=== PATIENT | female | born 1955 | race Caucasian/White ===

== ENCOUNTER 2017-08-07 13:53 | Emergency (ER) | payer OTHER ==
[2017-08-07 14:59] VITALS: BP 149/73
--- NOTE | 2017-08-07 15:48 | UC ---
Respiratory Complaint HPI - HPI Summary HPI Summary: c/o sinus congestion and pain, cough with production of thick scant phlegm, chills and low grade fever for the past 2 weeks. She has decreased the amount of cigarettes she smokes, but is feeling weak from this episode. She denies wheezing or chest pain other than when she coughs. States she is compliant with medications for HLD and DM - History of Current Complaint Chief Complaint: UCRespiratory Stated Complaint: CONGESTED,COUGH Time Seen by Provider: 08/07/17 15:20 Hx Obtained From: Patient ?: Yes Onset/Duration: Gradual Onset, Lasting Weeks Severity Initially: Mild Severity Currently: Moderate Pain Intensity: 6 Aggravating Factors: Recumbent Position Alleviating Factors: Nothing Associated Signs And Symptoms: Positive: Chills, Nasal Congestion, Sinus Discomfort - Risk Factors Pulmonary Embolism Risk Factors: Smoking Cardiac Risk Factors: Smoking, Diabetes, Elevated Lipids Pseudomonas Risk Factors: Negative Tuberculosis Risk Factors: Negative - Allergies/Home Medications Allergies/Adverse Reactions: Allergies Allergy/AdvReac Type Severity Reaction Status Date / Time No Known Allergies Allergy Verified 08/07/17 14:58 Home Medications: Home Medications Atorvastatin* [Lipitor*] 40 mg PO 1700 08/07/17 [History Confirmed 08/07/17] Insulin Glargine,Hum.rec.anlog [Basaglar Kwikpen] 30 unit SC BID 08/07/17 [ History Confirmed 08/07/17] Metformin HCl [Metformin HCl ER (Osmotic] 500 mg PO 08/07/17 [History] PMH/Surg Hx/FS Hx/Imm Hx Previously Healthy: Yes Endocrine History: Diabetes, Dyslipidemia - Surgical History Surgical History: Yes Surgery Procedure, Year, and Place: tubal ligation, t&a - Social History Alcohol Use: None Substance Use Type: None Smoking Status (MU): Light Every Day Tobacco Smoker Type: Cigarettes Review of Systems Constitutional: Fever, Chills Skin: Negative ENT: Sinus Pain/Tenderness Respiratory: Cough All Other Systems Reviewed And Are Negative: Yes Physical Exam Triage Information Reviewed: Yes Appearance: Ill-Appearing, Obese Vital Signs: Initial Vital Signs Temp 99.0 F 08/07/17 14:55 Pulse 108 08/07/17 14:55 Resp 18 08/07/17 14:55 BP 149/73 08/07/17 14:55 Pulse Ox 96 08/07/17 14:55 Vital Signs Reviewed: Yes Eyes: Positive: Conjunctiva Clear ENT: Positive: Pharyngeal erythema, Nasal congestion, TMs normal, Sinus tenderness, Uvula midline Neck exam: Normal Respiratory: Positive: Chest non-tender, Lungs clear, Normal breath sounds, No respiratory distress Cardiovascular: Positive: RRR, No Murmur, Pulses Normal, Brisk Capillary Refill UC Diagnostic Evaluation - Laboratory O2 Sat by Pulse Oximetry: 96 Respiratory Course/Dx - Course Course Of Treatment: Acute bronchitis and sinusitis with multiple risk factors, will start augmentin 875 bid for 10 days, oral hydration, tobacco cessation, use advair for 10 days, f/u with PCP - Differential Dx/Diagnosis Provider Diagnoses: acute bronchitis. Acute sinusitis. tobacco abuse Discharge - Sign-Out/Discharge Documenting (check all that apply): Discharge - Discharge Plan Condition: Stable Disposition: HOME Prescriptions: Amoxicillin/Clavulanate TAB* [Augmentin TAB 875*] 875 mg PO BID 10 Days #20 tab Fluticas/Salmet 230/21 HFA(NF) [Advair HFA 23O/21 (NF)] 1 puff INH BID 10 Days # 1 mdi Patient Education Materials: How to Stop Smoking (ED), Sinusitis (ED), Liquids and Hydration for Athletes (ED), Acute Bronchitis (ED) Forms: *Work Release Referrals: Odette Finney MD [Primary Care Provider] - - Billing Disposition and Condition Condition: STABLE Disposition: HOME
== END 2017-08-07 15:45 | disposition home or self-care (01) ==
LOC: UCEAST 13:53
DX: J20.9 Acute bronchitis, unspecified (principal); J01.90 Acute sinusitis, unspecified; E11.9 Type 2 diabetes mellitus without complications; Z79.4 Long term (current) use of insulin; Z79.84 Long term (current) use of oral hypoglycemic drugs; E78.5 Hyperlipidemia, unspecified; F17.210 Nicotine dependence, cigarettes, uncomplicated
CPT/HCPCS: 99202; G0463

== ENCOUNTER 2017-10-16 20:09 | Emergency (ER) | payer OTHER ==
[2017-10-16 20:19] VITALS: BP 140/60
--- NOTE | 2017-10-16 20:21 | UC ---
Skin Complaint HPI - HPI Summary HPI Summary: 62 yo female presents with rash to b/l feet. She tells me about 1.5 weeks ago she developed a small red blister-like lesion on her right 3rd and 4th toes. Since that time has spread to her 5th toe and yesterday noticed same lesions on her LEFT toes. Has been putting many different OTC creams on them with no relief. Has been wearing the same sandals this whole time. Says that when she showers or bathes that these lesions "sting". Denies fever, chills, or injury. - History of Current Complaint Chief Complaint: UCSkin Time Seen by Provider: 10/16/17 20:20 Stated Complaint: RASH ON BOTH FEET Hx Obtained From: Patient Onset/Duration: Gradual Onset Current Severity: None Pain Intensity: 0 - Allergy/Home Medications Allergies/Adverse Reactions: Allergies Allergy/AdvReac Type Severity Reaction Status Date / Time bee venom protein (honey bee) Allergy Severe Anaphylatic Verified 10/16/17 20:19 Shock Fish Containing Products Allergy Severe Anaphylatic Verified 10/16/17 20:19 Shock Review of Systems Constitutional: Negative Skin: Rash Respiratory: Negative Cardiovascular: Negative Neurovascular: Negative Neurological: Negative Psychological: Negative All Other Systems Reviewed And Are Negative: Yes PMH/Surg Hx/FS Hx/Imm Hx Endocrine History: Diabetes, Dyslipidemia Respiratory History: COPD - Surgical History Surgical History: Yes Surgery Procedure, Year, and Place: tubal ligation, t&a - Family History Known Family History: Positive: Diabetes - Social History Lives: With Family Alcohol Use: None Substance Use Type: None Smoking Status (MU): Current Every Day Smoker Type: Cigarettes Amount Used/How Often: 1/2 PPD Physical Exam - Summary Physical Exam Summary: GENERAL: NAD. WDWN. No pain distress. SKIN: B/L 3rd, 4th, and 5th toes: blister like lesions with erythematous bases resembling the herpes virus. No streaking, bleeding, or drainage. NECK: Supple. Nontender. No lymphadenopathy. CHEST: No accessory muscle use. Breathing comfortably and in no distress. CV: RRR. Without m/r/g. NEURO: Alert. CN II-XII grossly intact. PSYCH: Age appropriate behavior. Triage Information Reviewed: Yes Vital Signs: Initial Vital Signs Temp 97.6 F 10/16/17 20:12 Pulse 91 10/16/17 20:12 Resp 16 10/16/17 20:12 BP 140/60 10/16/17 20:12 Pulse Ox 96 10/16/17 20:12 Course/Dx - Course Course Of Treatment: Lesions most closely resemble a virus in the herpes family. Will treat with acyclovir cream and keep covered and have her f/u with PCP or with dermatology if the lesions continue to spread or do not improve. - Diagnoses Provider Diagnoses: Rash b/l feet Discharge - Sign-Out/Discharge Documenting (check all that apply): Discharge/Admit/Transfer - Discharge Plan Condition: Stable Disposition: HOME Prescriptions: Acyclovir [Acyclovir 5% TOPICAL] 15 gm TOPICAL BID #1 tube Patient Education Materials: Acute Rash (ED) Referrals: Gordo Nuñez MD [Primary Care Provider] - Fuad Petty MD [Medical Doctor] - If Needed Additional Instructions: If you develop a fever, shortness of breath, chest pain, new or worsening symptoms - please call your PCP or go to the ED. Your blood pressure was high at todays visit. Please see your primary provider within 4 weeks for recheck and re-evaluation. 1) Wash your sandals very well and keep the lesions on your toes covered 2) If the lesions do not go away or get worse - please call dermatology at the number below to schedule a follow up appointment - Billing Disposition and Condition Condition: STABLE Disposition: Home
== END 2017-10-16 20:40 | disposition home or self-care (01) ==
LOC: UCEAST 20:09
DX: R21 Rash and other nonspecific skin eruption (principal); Z91.030 Bee allergy status; Z91.013 Allergy to seafood; E11.9 Type 2 diabetes mellitus without complications; Z79.4 Long term (current) use of insulin; Z79.84 Long term (current) use of oral hypoglycemic drugs; E78.5 Hyperlipidemia, unspecified; J44.9 Chronic obstructive pulmonary disease, unspecified; Z83.3 Family history of diabetes mellitus; F17.210 Nicotine dependence, cigarettes, uncomplicated
CPT/HCPCS: 99212; G0463

== ENCOUNTER 2019-06-18 12:19 | Emergency (ER) | payer BC, OTHER ==
[2019-06-18] MEDS ORDERED: Acetaminophen TAB* 325 MG PO ONE (14:49)
[2019-06-18] MEDS ORDERED: NS 0.9% 1000 ML** 1,000 ML IV ONE ×2 (14:49→16:05)
[2019-06-18] MEDS ORDERED: Ondansetron INJ* 2 MG/ML VIAL IV ONE (14:49)
[2019-06-18] MEDS ORDERED: Albuterol/Ipratropium NEB.SOL* Albuterol 2.5 MG/Ipratropium 0.5 MG 3 ML INH ONE ×2 (14:49→16:56)
--- NOTE | 2019-06-18 14:50 | ED ---
Influenza-Like Illness - HPI Summary HPI Summary: Patient is a 64-year-old female who presents to emergency department for vomiting, diarrhea, cough, fever 4 days. Patient notes sick contacts at work. Denies significant past medical history. Symptoms are moderate in severity. Patient denies abdominal pain, shortness of breath, urinary symptoms. No current modifying factors. - History of Current Complaint Chief Complaint: EDUpperRespComplaint Time Seen by Provider: 06/18/19 14:35 Hx Obtained From: Patient - Allergy/Home Medications Allergies/Adverse Reactions: Allergies Allergy/AdvReac Type Severity Reaction Status Date / Time bee venom protein (honey bee) Allergy Severe Anaphylatic Verified 06/18/19 12:24 Shock Fish Containing Products Allergy Severe Anaphylatic Verified 06/18/19 12:24 Shock PMH/Surg Hx/FS Hx/Imm Hx Previously Healthy: Yes Endocrine/Hematology History: Reports: Hx Diabetes - type 2 Respiratory History: Reports: Hx Asthma - Surgical History Surgery Procedure, Year, and Place: tubal ligation, t&a Infectious Disease History: No Infectious Disease History: Denies: Traveled Outside the [place] in Last 30 Days - Family History Known Family History: Positive: Diabetes, Non-Contributory - Social History Occupation: Retired Lives: With Family Alcohol Use: None Substance Use Type: Reports: None Smoking Status (MU): Current Every Day Smoker Type: Cigarettes Amount Used/How Often: 1/2 PPD Review of Systems Positive: Fever, Chills ENT: Other - sinus pressure Positive: Nasal Discharge Cardiovascular: Negative Negative: Palpitations, Chest Pain Positive: Cough. Negative: Shortness Of Breath Positive: Vomiting, Diarrhea. Negative: Abdominal Pain Genitourinary: Negative Positive: Myalgia Skin: Negative Neurological/Mental Status: Negative All Other Systems Reviewed And Are Negative: Yes Physical Exam Triage Information Reviewed: Yes Vital Signs On Initial Exam: Initial Vitals Temp Pulse Resp BP Pulse Ox 98.3 F 124 20 163/70 91 06/18/19 12:20 06/18/19 12:20 06/18/19 12:20 06/18/19 12:20 06/18/19 12:20 Vital Signs Reviewed: Yes Appearance: Positive: Well-Appearing - Pt. lying in bed in NAD. Appears fatigued but nontoxic. present. Skin: Positive: Warm, Dry Head/Face: Positive: Normal Head/Face Inspection Eyes: Positive: Normal, EOMI, LOS, Conjunctiva Clear ENT: Positive: Pharyngeal erythema, TMs normal, Sinus tenderness, Other - oral mucosa dry.. Negative: Tonsillar swelling, Tonsillar exudate Neck: Positive: Supple Respiratory/Lung Sounds: Positive: Other - Diminished breath sounds throughout. Cardiovascular: Positive: Normal, RRR Abdomen Description: Positive: Nontender, Soft Neurological: Positive: Normal, CN Intact II-III Psychiatric: Positive: Affect/Mood Appropriate Procedures - Sedation Patient Received Moderate/Deep Sedation with Procedure: No Diagnostics - Vital Signs Vital Signs Temp Pulse Resp BP Pulse Ox 06/18/19 13:56 101.0 F 108 18 132/53 93 06/18/19 12:20 98.3 F 124 20 163/70 91 - Laboratory Result Diagrams: 06/18/19 14:54 06/18/19 14:54 Lab Statement: Any lab studies that have been ordered have been reviewed, and results considered in the medical decision making process. Flu Symptom Course/Dx - Course Course Of Treatment: Pt. with fever, cough, and sinus congestion. Temp 101F, mildly tachy, O2 sat 91-93% on RA. Pt. appears dehydrated. Given iv fluids, zofran, tylenol, and breathing treatment. Labs show mildly decreased Na and mag. Negative flu. CXR shows left sided infiltrate. 1645: On re-exam. Pt .feeling better. Increase breath sounds. Pt. given dose of azithromycin and is tolerating PO fluids. 1700: On repeat VS O2 noted to be 89% on RA. Will given another duoneb. HR improved. 1730: Pt. walked 1.5 laps in ED and pulse ox stayed at 89% on RA. Pt. speaking with me while walking and states she feels at her baseline. Pt. would like to go home. Pt. smokes .5-1 packs of cigarettes a day so low 90's probably baseline with activity. WIll dc home. To use inhaler 2 puffs every 4-6 hours. To see pcp in 2-3 days. Will return to ER for increased shortness of breath, cp or if concerned. - Diagnoses Differential Diagnosis/HQI/PQRI: Positive: Influenza, Pneumonia, Upper Respiratory Infection Provider Diagnoses: Pneumonia Discharge ED - Sign-Out/Discharge Documenting (check all that apply): Patient Departure - Discharge Plan Condition: Improved Disposition: HOME Prescriptions: Albuterol HFA INHALER* [Ventolin HFA Inhaler*] 2 puff INH Q6H PRN #1 mdi PRN Reason: Wheezing Azithromycin 250 mg PO DAILY #4 tablet Ondansetron HCl [Zofran] 4 mg PO Q6HR #12 tablet Patient Education Materials: Bacterial Pneumonia (ED) Forms: *Work Release Referrals: Gordo Nuñez MD [Primary Care Provider] - Additional Instructions: Please follow up with our PCP within 2-3 days for recheck Start antibiotic tomorrow Use inhaler 2 puffs every 4-6 hours Avoid smoking Tylenol or Motrin for pain fever as directed Increase fluids and rest Return to ER if symptoms change or worsen - Billing Disposition and Condition Condition: IMPROVED Disposition: Home - Attestation Statements Provider Attestation: I was available for consult. This patient was seen by the ROSALIA. The patient was not presented to, seen by, or examined by me. -Claribel
[2019-06-18 15:04] LABS: ABS Basophils 0.1 10^3/ul (0-0.2); ABS Eosinophils 0.1 10^3/ul (0-0.6); ABS Lymphocytes 2.2 10^3/ul (1.0-4.8); ABS Monocytes 1.3 10^3/ul (0-0.8); ABS Neutrophils 7.1 10^3/ul (1.5-7.7); Eosinophil % 1.1 %; Hematocrit 36 % (35-47); Hemoglobin 12.2 g/dL (12.0-16.0); Lymphocyte % 20.2 %; Mean Corpuscular HGB Conc 34 g/dL (31-36); Mean Corpuscular Hemoglobin 30 pg (27-31); Mean Corpuscular Volume 87 fL (80-97); Mean Platelet Volume 7.2 fL (7.4-10.4); Platelet Count 384 10^3/uL (150-450); Red Cell Distribution Width 15 % (10-15); White Blood Count 10.7 10^3/uL (3.5-10.8)
[2019-06-18 15:16] LABS: Influenza A Molecular Negative (Negative); Influenza B Molecular Negative (Negative)
[2019-06-18 15:20] LABS: Albumin 3.9 g/dL (3.2-5.2); Magnesium 1.8 mg/dL (1.9-2.7); Total Bilirubin 0.5 mg/dL (0.2-1.0)
[2019-06-18 15:26] LABS: Albumin/Globulin Ratio 1.2 (1-3); BUN/Creatinine Ratio 11.8 (8-20); EGFR African American 105.4 (>60); EGFR Non-African American 87.1 (>60); Globulin 3.2 g/dL (2-4); Total Protein 7.1 g/dL (6.4-8.9)
[2019-06-18] MEDS ORDERED: Azithromycin TAB* 250 MG PO ONE (16:08)
[2019-06-18 17:24] VITALS: BP 136/72
== END 2019-06-18 17:38 | disposition home or self-care (01) ==
LOC: ED 12:19
DX: J18.9 Pneumonia, unspecified organism (principal); R05 Cough; R11.10 Vomiting, unspecified; R19.7 Diarrhea, unspecified; F17.210 Nicotine dependence, cigarettes, uncomplicated; E11.9 Type 2 diabetes mellitus without complications; Z79.4 Long term (current) use of insulin; J45.909 Unspecified asthma, uncomplicated; Z98.51 Tubal ligation status
CPT/HCPCS: 36415; 71046; 80053; 83735; 85025; 96361; 96374; 99282; A9270-GY; J2405